=== PATIENT | male | born 1970 | race Caucasian/White ===

== ENCOUNTER 2021-03-18 22:57 | Emergency (ER) | payer OTHER ==
[2021-03-19 00:37] LABS: Absolute Lymphocytes (CBC) 3.3 K/uL (0.7-4.9); Basophils % 0.5 % (0-1.3); Lymphocytes % 27.4 % (15.3-44.8); MPV 9.2 fL (7.6-11.3); RBC Red Blood Cell Count 4.99 M/uL (4.33-5.43)
[2021-03-19] MEDS ORDERED: NA CHLORIDE 0.9% 1,000 ML ONE (00:41)
[2021-03-19] MEDS ORDERED: ONDANSETRON 4 MG/2 ML VIAL ONE (01:08)
[2021-03-19] MEDS ORDERED: HYDROMORPHONE HCL 1 MG/ML INJ ONE (01:08)
[2021-03-19 01:16] LABS: Albumin 4.4 g/dL (3.4-5.0); Bilirubin Direct 0.1 mg/dL (0-0.2); Bilirubin Total 0.4 mg/dL (0.2-1.0); Potassium 4.5 mmol/L (3.5-5.1); Protein, Total 8.8 g/dL (6.4-8.2)
--- NOTE | 2021-03-19 02:30 | EDPHYS ---
Physician Documentation [facility] Name: Philippe Tellez Age: 50 yrs Sex: Male : 1970 Arrival Date: 03/18/2021 Time: 23:06 Bed 26 Private MD: ED Physician Kyung Gale HPI: 03/19 01:09 This 50 yrs old Male presents to ER via [employer] with complaints of ma2 Abdominal Pain. 01:09 The patient presents with abdominal pain. Associated signs and symptoms: Pertinent ma2 negatives: anorexia, constipation, fever, headache, testicular pain, vomiting blood. Severity of pain: At its worst the pain was mild in the emergency department the pain is unchanged. The patient has experienced similar episodes in the past. Historical: - Allergies: 03/18 23:12 No Known Allergies; ca1 - Home Meds: 23:12 Metformin Oral [Active]; Glipizide Oral [Active]; ca1 - PMHx: 23:12 Diabetes mellitus; Hypercholesterolemia; Hypertensive disorder; GERD; ca1 - PSHx: 23:12 None; ca1 - Immunization history:: Client reports receiving the 2nd dose of the Covid vaccine, Client reports receiving the 1st dose of the Covid vaccine, Flu vaccine is up to date. - Social history:: Smoking status: Patient/guardian denies using tobacco, the patient reports quitting approximately 2.5 years ago. - Family history:: not pertinent. ROS: 03/19 01:09 Constitutional: Negative for fever, chills, and weight loss. ma2 All other systems are negative. Exam: 01:09 Constitutional: This is a well developed, well nourished patient who is awake, alert, ma2 and in no acute distress. Head/Face: Normocephalic, atraumatic. Eyes: Pupils equal round and reactive to light, extra-ocular motions intact. Lids and lashes normal. Conjunctiva and sclera are non-icteric and not injected. Cornea within normal limits. Periorbital areas with no swelling, redness, or edema. ENT: Nares patent. No nasal discharge, no septal abnormalities noted. Tympanic membranes are normal and external auditory canals are clear. Oropharynx with no redness, swelling, or masses, exudates, or evidence of obstruction, uvula midline. Mucous membranes moist. Neck: Trachea midline, no thyromegaly or masses palpated, and no cervical lymphadenopathy. Supple, full range of motion without nuchal rigidity, or vertebral point tenderness. No Meningismus. Chest/axilla: Normal chest wall appearance and motion. Nontender with no deformity. No lesions are appreciated. Cardiovascular: Regular rate and rhythm with a normal S1 and S2. No gallops, murmurs, or rubs. Normal PMI, no JVD. No pulse deficits. Respiratory: Lungs have equal breath sounds bilaterally, clear to auscultation and percussion. No rales, rhonchi or wheezes noted. No increased work of breathing, no retractions or nasal flaring. Abdomen/GI: Soft, non-tender, with normal bowel sounds. No distension or tympany. No guarding or rebound. No evidence of tenderness throughout. Back: No spinal tenderness. No costovertebral tenderness. Full range of motion. MS/ Extremity: Pulses equal, no cyanosis. Neurovascular intact. Full, normal range of motion. Neuro: Awake and alert, GCS 15, oriented to person, place, time, and situation. Cranial nerves II-XII grossly intact. Motor strength 5/5 in all extremities. Sensory grossly intact. Cerebellar exam normal. Normal gait. Vital Signs: 03/18 23:10 BP 136 / 84; Pulse 91; Resp 18 S; Temp 97.6(TE); Pulse Ox 98% on R/A; Weight 106.14 kg ca1 (R); Height 5 ft. 10 in. (177.80 cm) (R); Pain 8/10; 03/19 01:01 BP 100 / 77; Pulse 88; Resp 18; Pulse Ox 99% on R/A; ea 02:45 BP 112 / 68; Pulse 80; Resp 18; Temp 98; Pulse Ox 98% ; ea 03/18 23:10 Body Mass Index 33.58 (106.14 kg, 177.80 cm) ca1 MDM: 00:42 Patient medically screened. ma2 01:09 Differential diagnosis: gastritis, gastroesophageal reflux disease, Hepatitis, ma2 Irritable bowel syndrome, pancreatitis. 01:41 Data reviewed: vital signs, nurses notes. Counseling: I had a detailed discussion with ma the patient and/or guardian regarding: the historical points, exam findings, and any diagnostic results supporting the discharge/admit diagnosis, the presence of at least one elevated blood pressure reading (>120/80) during this emergency department visit, the need for outpatient follow up. Response to treatment: the patient's symptoms have markedly improved after treatment. ED course: Has pancreatitis, he said he had a chronic pancreatitis pain is controlled, vitals are within normal limits labs unremarkable other than elevated lipase, patient can pursue outpatient management as per Eduar score.. 03/18 23:42 Order name: Basic Metabolic Panel; Complete Time: 01:40 [facility] 03/18 23:42 Order name: CBC with Diff; Complete Time: 00:42 [facility] 03/18 23:42 Order name: Hepatic Function; Complete Time: 01:40 [facility] 03/18 23:42 Order name: Lipase; Complete Time: :40 [facility] 03/19 00:47 Order name: CT Abd/Pelvis - IV Contrast Only [facility] 03/18 23:42 Order name: IV Saline Lock; Complete Time: 00:48 [facility] 03/18 23:42 Order name: Labs collected and sent; Complete Time: 00:48 [facility] Administered Medications: 00:47 Drug: NS 0.9% 1000 ml Route: IV; Rate: 1 bolus; Site: right antecubital; ea 02:50 Follow up: Response: No adverse reaction; IV Status: Completed infusion; IV Intake: ea 1000ml 00:48 Drug: Dilaudid (HYDROmorphone) 1 mg Route: IVP; Site: right antecubital; ea 02:33 Follow up: Response: No adverse reaction ea 00:48 Drug: Zofran (Ondansetron) 4 mg Route: IVP; Site: right antecubital; ea 02:33 Follow up: Response: No adverse reaction ea 02:48 Drug: [place] (HYDROcodone-acetaminophen) 10 mg-325 mg 1 tabs Route: PO; ea 02:48 Follow up: Response: Medication administered at discharge. ea Disposition Summary: 03/19/21 02:30 Discharge Ordered Location: Home ma2 Condition: Stable ma2 Diagnosis - Other chronic pancreatitis ma2 Followup: ma2 - With: Private Physician - When: Tomorrow - Reason: Continuance of care Discharge Instructions: - Discharge Summary Sheet ma2 - Chronic Pancreatitis ma2 Forms: - Medication Reconciliation Form ma2 - Thank You Letter ma2 - Antibiotic Education ma2 - Prescription Opioid Use ma2 Prescriptions: - Diclofenac Sodium 75 mg Oral Tablet Sustained Release - take 1 tablet by ORAL route 2 times per day; 30 tablet; Refills: 0, Product ma2 Selection Permitted Signatures: Dispatcher [employer] Tegan Santoro, RN RN Kyung Russ MD MD ma2 Antoinette English RN RN ca1
--- NOTE | 2021-03-19 02:30 | ER ---
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 HX of ca1 pancreatitis. Reports vomiting x 1, nausea. Coronavirus screen: Client denies travel out of the [place] in the last 14 days. nausea, Client presents with at least one sign or symptom that may indicate coronavirus-19. Standard/surgical mask placed on the client. Provider contacted for isolation considerations. Ebola Screen: Patient negative for fever greater than or equal to 101.5 degrees Fahrenheit, and additional compatible Ebola Virus Disease symptoms Patient denies exposure to infectious person. Patient denies travel to an Ebola-affected area in the 21 days before illness onset. No symptoms or risks identified at this time. Initial Sepsis Screen: Does the patient meet any 2 criteria? No. Patient's initial sepsis screen is negative. Does the patient have a suspected source of infection? No. Patient's initial sepsis screen is negative. Risk Assessment: Do you want to hurt yourself or someone else? Patient reports no desire to harm self or others. Onset of symptoms was March 18, 2021. 23:10 Method Of Arrival: [employer]: [place] [employer] ca1 23:10 Acuity: SAVANA 3 ca1 Historical: - Allergies: 23:12 No Known Allergies; ca1 - Home Meds: 23:12 Metformin Oral [Active]; Glipizide Oral [Active]; ca1 - PMHx: 23:12 Diabetes mellitus; Hypercholesterolemia; Hypertensive disorder; GERD; ca1 - PSHx: 23:12 None; ca1 - Immunization history:: Client reports receiving the 2nd dose of the Covid vaccine, Client reports receiving the 1st dose of the Covid vaccine, Flu vaccine is up to date. - Social history:: Smoking status: Patient/guardian denies using tobacco, the patient reports quitting approximately 2.5 years ago. - Family history:: not pertinent. Screenin/30 01:00 Abuse screen: Denies threats or abuse. Nutritional screening: No deficits noted. ea Tuberculosis screening: No symptoms or risk factors identified. Fall Risk None identified. Assessment: 00:30 General: Appears uncomfortable, Behavior is appropriate for age. Pain: Complains of ea pain in abdomen. Neuro: Level of Consciousness is awake, alert, obeys commands, Oriented to person, place, time. Respiratory: Airway is patent Respiratory effort is even, unlabored, Respiratory pattern is regular, symmetrical. Derm: Skin is pink, warm \T\ dry. 02:48 Reassessment: Patient and/or family updated on plan of care and expected duration. Pain ea level reassessed. Patient is alert, oriented x 3, equal unlabored respirations, skin warm/dry/pink. Discharge instruction given to patient verbalized the understanding of instruction. Pt left ED ambulatory accompanied by skilled nursing guards. Vital Signs: 03/18 23:10 BP 136 / 84; Pulse 91; Resp 18 S; Temp 97.6(TE); Pulse Ox 98% on R/A; Weight 106.14 kg ca1 (R); Height 5 ft. 10 in. (177.80 cm) (R); Pain 8/10; 03/19 01:01 BP 100 / 77; Pulse 88; Resp 18; Pulse Ox 99% on R/A; ea 02:45 BP 112 / 68; Pulse 80; Resp 18; Temp 98; Pulse Ox 98% ; ea 03/18 23:10 Body Mass Index 33.58 (106.14 kg, 177.80 cm) ca1 ED Course: 03/18 23:06 Patient arrived in ED. bp1 23:11 Triage completed. ca1 23:12 Arm band placed on right wrist. ca1 03/19 00:30 Patient has correct armband on for positive identification. Bed in low position. Call ea light in reach. 00:42 Kyung Gale MD is Attending Physician. ma2 00:58 Tegan Steward RN is Primary Nurse. ea 01:43 CT Abd/Pelvis - IV Contrast Only In Process Unspecified. EDMS 02:49 No provider procedures requiring assistance completed. IV discontinued, intact, ea bleeding controlled, No redness/swelling at site. Pressure dressing applied. Administered Medications: 00:47 Drug: NS 0.9% 1000 ml Route: IV; Rate: 1 bolus; Site: right antecubital; ea 02:50 Follow up: Response: No adverse reaction; IV Status: Completed infusion; IV Intake: ea 1000ml 00:48 Drug: Dilaudid (HYDROmorphone) 1 mg Route: IVP; Site: right antecubital; ea 02:33 Follow up: Response: No adverse reaction ea 00:48 Drug: Zofran (Ondansetron) 4 mg Route: IVP; Site: right antecubital; ea 02:33 Follow up: Response: No adverse reaction ea 02:48 Drug: [place] (HYDROcodone-acetaminophen) 10 mg-325 mg 1 tabs Route: PO; ea 02:48 Follow up: Response: Medication administered at discharge. ea Intake: 02:50 IV: 1000ml; Total: 1000ml. ea Outcome: 02:30 Discharge ordered by MD. max 02:49 Discharged to Half-Way with guards ea 02:49 Condition: stable 02:49 Discharge instructions given to patient, Instructed on discharge instructions, follow up and referral plans. Demonstrated understanding of instructions, follow-up care. 02:50 Patient left the ED. ea Signatures: Dispatcher [employer] Tegan Santoro RN RN ea Alzahri, Mohammad, MD MD ma2 Acob, Cheryl, RN RN ca1 [place], [facility]
[2021-03-19] MEDS ORDERED: HYDROCODONE/APAP 10/325 TAB ONE (03:05)
[2021-03-19 05:33] VITALS: BP 112/68; TEMP 98; O2SAT 98
--- NOTE | 2021-03-19 11:56 | RAD REPORT ---
EXAM DESCRIPTION: CT - Abdomen Pelvis W Contrast - 03/19/2021 5:02 am CLINICAL HISTORY: The patient is 50 years old and is Male; ABD PAIN TECHNIQUE: Axial computed tomography images of the abdomen and pelvis with intravenous contrast. S agittal and coronal reformatted images were created and reviewed. This CT exam was performed using one or more of the following dose reduction techniques: automated exposure control, adjustment of t he mA and/or kV according to patient size, and/or use of iterative reconstruction technique. COMPARISON: No relevant prior studies available. FINDINGS: Lung bases: Unremarkable. No mass. No consolidation. ABDOMEN: Liver: Unremarkable. No mass. Gallbladder and bile ducts: Unremarkable. No calcified stones. No ductal dilation. Pancreas: There is a dilated pancreatic duct proximally which communicates with a larger irregula r appearing cystic lesion or severely dilated irregular pancreatic duct in the pancreatic body/tail. There is some hypoattenuation within the pancreas around the margins of the lesion Spleen: Unremarkable. No splenomegaly. Adrenals: Unremarkable. No mass. Kidneys and ureters: Unremarkable. No solid mass. No hydronephrosis. Stomach and bowel: Unremarkable. No obstruction. No mucosal thickening. PELVIS: Appendix: No findings to suggest acute appendicitis. Bladder: Unremarkable. No mass. Reproductive: Unremarkable as visualized. ABDOMEN and PELVIS: Intraperitoneal space: Unremarkable. No free air. No significant fluid collection. Bones/joints: No acute fracture. No dislocation. Soft tissues: There is mild mesenteric edema. Vasculature: Unremarkable. No abdominal aortic aneurysm. Lymph nodes: Unremarkable. No enlarged lymph nodes. IMPRESSION: 1. There is a dilated pancreatic duct proximally which communicates with a larger irre gular appearing cystic lesion or severely dilated irregular pancreatic duct in the pancreatic body/ta il. There is some hypoattenuation within the pancreas around the margins of the lesion Findings are concerning for neoplasm. 2. There is mild mesenteric edema. Electronically signed by: Jorge Vazquez MD 03/19/2021 2:19 AM CDT Due to temporary technical issues with the PACS/Fluency reporting system, reports are being signed by the in house radiologists without review as a courtesy to insure prompt reporting. The interpreting radiologist is fully responsible for the content of the report.
== END 2021-03-19 02:50 | disposition home or self-care (01) ==
LOC: ER 22:57
DX: K86.1 Other chronic pancreatitis (principal); E11.9 Type 2 diabetes mellitus without complications; E78.00 Pure hypercholesterolemia, unspecified; I10 Essential (primary) hypertension; K21.9 Gastro-esophageal reflux disease without esophagitis; Z79.84 Long term (current) use of oral hypoglycemic drugs; Z87.891 Personal history of nicotine dependence
CPT/HCPCS: 96361; 85025; 80048; 36415; 80076; 83690; 74177; 96375; 96374; 99283; Q9967; J2405; J1170; J7030